=== PATIENT | female | born 2000 | race African-American/Black ===

== ENCOUNTER 2022-01-13 17:03 | Emergency (ER) | payer OTHER ==
[2022-01-13 17:24] VITALS: BP 108/61; PULSE 85; TEMP 98.1; BMI 22.3
[2022-01-13 18:05] LABS: BASO % 0.3 % (0-2.0); HEMOGLOBIN 14.3 GM/dL (10.7-15.3); LYMPH % 41.7 % (8-40); MCH 30.1 pg (25.7-33.7); MEAN CELL VOLUME 88.4 fl (80-96); MEAN PLT VOLUME 7.1 fl (7.5-11.1); MONO % 8.2 % (3.8-10.2); NEUT % 47.8 % (42.8-82.8); PLATELET COUNT 264 10^3/uL (134-434); RBC 4.75 M/mm3 (3.60-5.2); RDW 12.7 % (11.6-15.6)
[2022-01-13 18:22] LABS: URINE APPEARANCE CLEAR; URINE BILIRUBIN NEGATIVE (NEGATIVE); URINE COLOR YELLOW; URINE GLUCOSE (UA) NEGATIVE (NEGATIVE); URINE KETONE NEGATIVE (NEGATIVE); URINE LEUK ESTERASE NEGATIVE (NEGATIVE); URINE NITRITE NEGATIVE (NEGATIVE); URINE PROTEIN NEGATIVE (NEGATIVE); URINE UROBILINOGEN 0.2 mg/dL (0.2-1.0)
[2022-01-13 18:25] LABS: HCG,QUALITATIVE URINE Negative
[2022-01-13 18:26] LABS: CALCIUM 8.9 mg/dL (8.5-10.1)
[2022-01-13 18:27] LABS: ALBUMIN 3.9 g/dl (3.4-5.0); BLOOD UREA NITROGEN 13.1 mg/dL (7-18)
[2022-01-13 18:30] LABS: CREATININE 0.9 mg/dL (0.55-1.3)
[2022-01-13 18:32] LABS: BILIRUBIN,TOTAL 0.2 mg/dL (0.2-1)
== END 2022-01-13 20:35 | disposition home or self-care (01) ==
LOC: JER 17:03
DX: R10.2 Pelvic and perineal pain (principal)
CPT/HCPCS: 36415; 76830-TC; 80053; 81003; 84703; 85025; 87086; 87491; 87591; 99284-25